=== PATIENT | female | born 1950 | race Caucasian/White ===

== ENCOUNTER → 2019-03-20 15:59 | Outpatient (CLI) | payer BC, SELFPAY ==
--- NOTE | ~2019-03-20 | CT_ITS ---
EXAMINATION: CT sinus wo con EXAM DATE: 03/20/2019 16:11 INDICATION: Chronic sinusitis. TECHNIQUE: Spiral CT of the sinuses was acquired in the axial plane. Coronal and sagittal reformatte d images were also reviewed. The dose-length product (DLP) for this examination was 261.43 mGy-cm. Iterative reconstruction (ASIR) was used as dose reduction technique. There is no prior study for co mparison. FINDINGS: The sinuses are normally developed. Left sphenoid is larger with mild mucoperiosteal thi ckening. No air-fluid levels. The ostiomeatal units are patent. Severe left sphenoid sinus wall th ickening indicating chronic history of sinusitis. There is mild to moderate leftward nasal septal d eviation. Trace bilateral mastoid fluid. External auditory canals are patent. The orbits and visu alized soft tissues are unremarkable. IMPRESSION: Mild left sphenoid mucoperiosteal thickening with wall thickening indicating history of c hronic sinusitis. Reviewed, dictated and finalized at location B. ER WORKER IMPRESSION: Mild left sphenoid mucoperiosteal thickening with wall thickening i ndicating history of chronic sinusitis.
== END ==
PROVIDERS: PCP Family Medicine; Visit Provider Otolaryngology
DX: J32.9 Chronic sinusitis, unspecified (principal)
CPT/HCPCS: 70486

== ENCOUNTER → 2019-12-15 10:14 | Outpatient (CLI) | payer MEDICARE, SELFPAY ==
--- NOTE | ~2019-12-15 | DEXA_ITS ---
Bone Density Report Name: Nayeli Mcneil Age: 69 Sex: Female Ethnicity: White Date of : 1950 Indication: postmenopausal; screening for osteoporosis; parental hip fracture; height loss; hysterectomy; Referring Provider: EMERSON HILL Study: Bone densitometry was performed. Exam Date: December 15, 2019 Accession number: [id number] Bone Density: Region BMD T-score Z-score Classification AP Spine (L1-L4) 0.787 -2.4 -0.2 Osteopenia Femoral Neck (Left) 0.621 -2.1 -0.2 Osteopenia Total Hip (Left) 0.709 -1.9 -0.4 Osteopenia World Health Organization criteria for BMD impression classify patients as: Normal (T-score at or above -1.0), Osteopenia (T-score between -1.0 and -2.5), or Osteoporosis (T-score at or below -2.5). 10-year Fracture Risk(1): Major Osteoporotic Fracture 18% Hip Fracture 4.8% Reported Risk Factors: [place] (), Neck BMD=0.621, BMI=32.1, parental fracture (1) FRAX(R) Version 3.08. Fracture probability calculated for an untreated patient. Fracture probability may be lower if the patient has received treatment. Clinical Information Provided by Patient: Parent has had a hip fracture Has used the following medications: Vitamin D, MTV Has the following medical conditions: Hysterectomy Patient maximum height was 66 Menopause Age: 55 No regular weight bearing exercise Drinks caffeinated beverages Onset of menses at age 12 Number of children 3 Impression: The patient has low bone mass, based on the Total Spine T-score. The patient has an estimated ten-year risk of hip fracture of 4.8% and an estimated ten-year risk of major fracture of 18%, based on the WHO FRAX algorithm. The patient has risk factors, including: parental hip fracture. Discussion: BONE DENSITY IS LOW AT ONE OR MORE SKELETAL SITES. THE PATIENT'S BMD AND CLINICAL RISK FACTORS CONTRIBUTE TO THIS PATIENT'S INCREASED RISK OF FRACTURE. This patient's lowest T-score is low at one or more skeletal sites. It meets the World Health Organization's (WHO) criteria for ?low bone mass? (T-score between -1.0 and -2.5). The patient's 10-year risk of hip fracture as calculated by FRAX exceeds the threshold where pharmacological therapy is recommended by the National Osteoporosis Foundation (NOF). However, all treatment decisions require clinical judgment and consideration of individual patient factors, including patient preferences, comorbidities, previous drug use, risk factors not captured in the FRAX model (e.g., frailty, falls, vitamin D deficiency, increased bone turnover, interval significant decline in bone density) and possible under or overestimation of fracture risk by FRAX. The patient should follow a healthful lifestyle (good nutrition with adequate calcium and vitamin D, and appropriate weight-bearing exercise). Follow-Up: Consider a repeat BMD and Verte
--- NOTE | ~2019-12-15 | MM_ITS ---
EXAMINATION: MM screening [facility] BI w trent HISTORY: Screening mammogram TECHNIQUE: Craniocaudal and mediolateral oblique 3-D tomosynthesis images were obtained and synthetic 2-D images were generated. CAD analysis was submitted and interpreted. COMPARISON: 01/10/2018, 10/18/2015, 08/25/2013 BREAST PARENCHYMAL COMPOSITION: There are scattered areas of fibroglandular density. FINDINGS: There is no evidence of suspicious mass, calcification, or architectural distortion to sugg est malignancy in either breast. There has been no suspicious interval change. IMPRESSION: 1. No mammographic evidence of malignancy. 2. Recommend routine screening mammography in one year. BI-RADS Category 1: Negative Reviewed, dictated and finalized at location A. CTION MACHINE OPERATOR
== END ==
PROVIDERS: PCP Family Medicine; Visit Provider Family Medicine
DX: Z12.31 Encounter for screening mammogram for malignant neoplasm of breast (principal); Z78.0 Asymptomatic menopausal state; M85.88 Other specified disorders of bone density and structure, other site; M85.852 Other specified disorders of bone density and structure, left thigh
CPT/HCPCS: 77063; 77067; 77080

== ENCOUNTER 2022-11-29 13:45 | Emergency (ER) | payer MEDICARE, SELFPAY ==
[2022-11-29 13:45] VITALS: BP 156/88; PULSE 71; RESP 16; TEMP 36.4; O2SAT 98
--- NOTE | 2022-11-29 13:46 | ED.URI ---
HPI - URI/Sore Throat General Chief Complaint: Upper Respiratory Infection Stated Complaint: upper respiratory Time Seen by Provider: 11/29/22 13:58 Source: patient and RN notes reviewed Mode of arrival: ambulatory Limitations: no limitations History of Present Illness HPI Narrative: 72-year-old female presents with concern for history of episodes of shortness of breath. She reports over the last several months she will be resting and she will feel short of breath briefly with episodes of fast breathing. She reports these episodes resolve on their own. She is not having any swelling her arms or legs, chest pain. She denies associated cough. She reports she has seen her primary doctor about this and they told her it could be anxiety. She has another appointment with them this week MD elicited complaint: other (shortness of breath) Related Data Home Medications Medication Instructions Recorded Confirmed ascorbate calcium (vitamin C) 500 500 mg PO DAILY 12/26/18 11/29/22 mg tablet tramadol 50 mg tablet 50 mg PO BID PRN Pain 11/29/22 11/29/22 Allergies Allergy/AdvReac Type Severity Reaction Status Date / Time VALE Inhibitors Allergy Unknown cough Verified 11/29/22 14:03 Review of Systems Review of Systems: CONSTITUTIONAL: Denies malaise, chills, sweats, or fever. EYES: Denies visual changes, redness, or discharge. ENT: Reports rhinorrhea, congestion, sinus pain, otalgia and sore throat. CARDIOVASCULAR: Denies chest pain, palpitations, or edema. RESPIRATORY: Denies cough. Reports episodic dyspnea. GASTROINTESTINAL: Denies abdominal pain, nausea, vomiting, diarrhea SKIN: Denies rash or itching. MUSCULOSKELETAL: Denies myalgia. NEUROLOGIC: Denies headache. All systems reviewed & are unremarkable except as noted in HPI and below PMFSH Past Medical History Medical History Cataract Chronic insomnia Degenerative joint disease Mixed hyperlipidemia MVP (mitral valve prolapse) Postmenopausal RLS (restless legs syndrome) Surgical History Surgical History History of arthroplasty of left knee History of hysterectomy Family History Family History Father Hypertension Family history of elevated blood lipids Family history of coronary artery disease, Onset Age: 84 Patient's father is Family history of heart disease in male family member before age 55 Mother Hypertension Family history of elevated blood lipids Family history of heart disease in male family member before age 55 Social History Social History (Updated 08/13/20 @ 15:22 by Danita Mandujano) Social History: Smoking status: Never smoker Second hand tobacco smoke exposure: No Alcohol intake: current Drinks per week: 2 Alcohol use details: Socially Substance use: never Substance use type: does not use Living arrangements: with family Occupation/Education: retired Gender identity (if verbalized by the patient): Female Sexual Orientation (if Verbalized by the Patient): Straight or Heterosexual Comments At time of signature, agree with nursing past medical, surgical, social and family history. There is no relevant family history pertinent to the presenting complaint Exam Narrative: GENERAL: Well-appearing, well-nourished, and in no acute distress. HEAD: Normocephalic EYES: PERRLA, conjunctivae clear ENT: Nares clear. Mucous membranes moist. NECK: Supple. No lymphadenopathy CHEST: Clear to auscultation, breath sounds equal. No wheezing, rhonchi, rales, or stridor. No respiratory distress, speaks in full sentences. HEART: Regular rate and rhythm. No murmur heard. SKIN: Warm, dry, no rash. NEURO: Alert and oriented x3. PSYCH: Normal mood and affect Course Course Emergency Course: Patient is aware of diagnosis, understands and agrees to t
== END 2022-11-29 14:14 | disposition home or self-care (01) ==
PROVIDERS: Emergency Provider Nurse Practitioner
DX: Z71.1 Person with feared health complaint in whom no diagnosis is made (principal); H26.9 Unspecified cataract; E78.2 Mixed hyperlipidemia; I34.1 Nonrheumatic mitral (valve) prolapse; G25.81 Restless legs syndrome
CPT/HCPCS: 99211; G0463

== ENCOUNTER 2022-12-24 13:46 | Emergency (ER) | payer MEDICARE, SELFPAY ==
--- NOTE | ~2022-12-24 | XR_ITS ---
EXAM: XR hip LT min 2V DATE: 12/24/2022 14:23 HISTORY: left hip pain no injury . COMPARISON: None available. FINDINGS: Normal mineralization. No fracture or dislocation. No lytic or blastic lesion. Lumbar dege nerative disc disease. Mild left hip osteoarthritis. No erosion or periosteal change. Soft tissues wi thin normal limits. IMPRESSION: No acute osseous finding in the left hip. Reviewed, dictated and finalized at location K. ME TAX EXPERT
[2022-12-24 13:56] VITALS: BP 161/82; PULSE 82; RESP 16; TEMP 36.6; O2SAT 100
--- NOTE | 2022-12-24 14:15 | ED.EXTPRO ---
HPI - Extremity Problem General Chief complaint: Extremity Injury, Lower Stated complaint: left leg pain Time Seen by Provider: 12/24/22 14:06 Source: patient, family () and RN notes reviewed Mode of arrival: ambulatory Limitations: no limitations History of Present Illness HPI Narrative: Patient presents today complaining of left lateral hip pain that occasionally radiates to the lateral knee when she stands and walks. Pain has been present x4 days. Denies known injury or trauma. Currently rates her pain at rest 1/10, which increases significantly with weight-bearing. Patient had a right hip replacement a few years ago, which left her right leg longer than the left, and also left her in significant pain for which she was taking pain medication. Recently she had gone off the pain medication after physical therapy. Denies numbness or tingling in the leg or foot. Patient does report some mild back pain recently as well. Related Data Allergies Allergy/AdvReac Type Severity Reaction Status Date / Time VALE Inhibitors Allergy Unknown cough Verified 12/24/22 13:54 Review of Systems Review of Systems: CONSTITUTIONAL: Denies body aches, fever, chills, or sweats. EYES: Denies visual changes, redness, or discharge. ENT: Denies rhinorrhea, congestion, sore throat, or otalgia. CARDIOVASCULAR: Denies chest pain, palpitations, or edema. RESPIRATORY: Denies cough or dyspnea. GASTROINTESTINAL: Denies abdominal pain, nausea, vomiting, or diarrhea. GENITOURINARY: Denies dysuria or hematuria. SKIN: Denies rash, itching, or wounds. MUSCULOSKELETAL: Denies myalgia.+ left hip pain, back pain NEUROLOGIC: Denies headache, numbness, tingling, or weakness. PSYCH: Denies depression or anxiety. [facility] Past Medical History Medical History Cataract Chronic insomnia Degenerative joint disease Mixed hyperlipidemia MVP (mitral valve prolapse) Postmenopausal RLS (restless legs syndrome) Surgical History Surgical History History of arthroplasty of left knee History of hysterectomy Family History Family History Father Hypertension Family history of elevated blood lipids Family history of coronary artery disease, Onset Age: 84 Patient's father is Family history of heart disease in male family member before age 55 Mother Hypertension Family history of elevated blood lipids Family history of heart disease in male family member before age 55 Social History Social History Social History: Smoking status: Never smoker Second hand tobacco smoke exposure: No Alcohol intake: current Drinks per week: 2 Alcohol use details: Socially Substance use: never Substance use type: does not use Living arrangements: with family Occupation/Education: retired Gender identity (if verbalized by the patient): Female Sexual Orientation (if Verbalized by the Patient): Straight or Heterosexual Comments At time of signature, I have reviewed and agree with nursing past medical, surgical, social and family history unless otherwise noted. Please see nursing chart for further information. There is no relevant family history pertinent to the presenting complaint Exam Narrative: GENERAL: Well-appearing, well-nourished, and in no acute distress. HEAD: Normocephalic, atraumatic. EYES: EOMI. No redness or drainage. Conjunctivae normal. ENT: Mucous membranes pink and moist. NECK: Normal AROM. CHEST: No respiratory distress. MUSCULOSKELETAL: No bony tenderness of the spine. Left lower lumbar paraspinal muscle tenderness. EXTREMITIES: Normal range of motion. No edema. No tenderness to the hip, but patient localizes her pain to the lateral hip area. No edema, ecchymosis,
== END 2022-12-24 14:41 | disposition home or self-care (01) ==
PROVIDERS: Emergency Provider Nurse Practitioner
DX: M70.62 Trochanteric bursitis, left hip (principal); E78.2 Mixed hyperlipidemia; I34.1 Nonrheumatic mitral (valve) prolapse; G25.81 Restless legs syndrome
CPT/HCPCS: 73502; 99213; G0463